=== PATIENT | male | born 1985 | race Caucasian/White ===

== ENCOUNTER 2016-07-18 15:33 | Emergency (ER) | payer BC, MEDICAID ==
[2016-07-18] MEDS ORDERED: HYDROCODONE/APAP 5/325MG TABLET PO ONE (16:10)
--- NOTE | 2016-07-18 16:10 | Emergency Department Record ---
History of Present Illness - General Chief complaint: Eye Problem Stated complaint: "feels like something in left eye Time Seen by Provider: 07/18/16 15:52 Source: Patient Mode of Arrival: Ambulatory Limitations: No limitations - History of Present Illness Initial comments: 30 yo male presents with left eye redness and irritation. He felt like something was in his eye this morning. He rubbed his eye and flushed it but the sensation of a foreign body is still present. He denies any eye history or eye disease. He does not wear contacts or glasses. No crusting or drainage. He has some clear tears. chief complaint: Eye pain, Eye redness, Foreign body -: Hour(s) Onset Description: Sudden Location: Left eye Place: Home If Injury: None Eye Symptoms: Burning, Discharge, Foreign body sensation, Itching, Pain Severity: Moderate Severity scale (1-10): 1 If Pain, Quality: Aching Consistency: Constant Associated Symptoms: None Treatments Prior to Arrival: Irrigated eye - Related Data Visual acuity (L) = 20/: 30 Visual acuity (R) = 20/: 15 With correction: No Patient Tetanus UTD (within 5 yrs): Yes Home Medications Medication Instructions Recorded Confirmed Last Taken Multivitamin [Multi-Vitamin Daily] 1 each PO DAILY 07/18/16 07/18/16 1 Day Ago Allergies Allergy/AdvReac Type Severity Reaction Status Date / Time No Known Drug Allergies Allergy Verified 07/18/16 15:44 Travel Screening - Travel/Exposure Within Last 30 Days Have you traveled within the last 30 days?: No - Travel/Exposure Within Last Year Have you traveled outside the [place] in the last year?: No - Additonal Travel Details Have you been exposed to anyone with a communicable illness?: No - Travel Symptoms Symptom Screening: None Review of Systems Constitutional: Denies: Chills, Fever, Malaise, Weakness Eyes: Reports: Eye pain, Vision change. Denies: Eye discharge ENT: Denies: Congestion, Throat pain Respiratory: Denies: Cough, Dyspnea, Hemoptysis, Stridor, Wheezes Cardiovascular: Denies: Chest pain, Palpitations, Syncope Endocrine: Denies: Fatigue Gastrointestinal: Denies: Abdominal pain, Diarrhea, Nausea, Vomiting Genitourinary: Denies: Frequency, Hematuria Musculoskeletal: Denies: Arthralgia, Back pain, Myalgia Skin: Denies: Bruising, Change in color, Rash Neurological: Denies: Confusion, Headache, Numbness, Vertigo, Weakness Psychiatric: Denies: Anxiety Hematological/Lymphatic: Denies: Blood Clots, Easy bleeding, Easy bruising, Swollen glands Past Medical History - SOCIAL HISTORY Smoking Status: Never smoker Alcohol Use: Rare Drug Use: None - RESPIRATORY Hx Respiratory Disorders: No - CARDIOVASCULAR Hx Cardio Disorders: No - NEURO Hx Neuro Disorders: No - GI Hx GI Disorders: No - Hx Genitourinary Disorders: No - ENDOCRINE Hx Endocrine Disorders: No - MUSCULOSKELETAL Hx Musculoskeletal Disorders: No - PSYCH Hx Psych Problems: No - HEMATOLOGY/ONCOLOGY Hx Hematology/Oncology Disorders: No Family Medical History Any Significant Family History?: Yes Physical Exam - General General Appearance: Alert, Oriented x3, Cooperative, No acute distress Limitations: No limitations - Head Head exam: Normal inspection - Eye Eye exam: PERRL, Conjunctival injection, EOMI, Periorbital swelling (mild lid swelling), Other (The lid was everted, no visible FB, no lesions, the area was gently swept with a Qtip no FB found). negative: Normal appearance, Nystagmus, Periorbital tenderness Pupils: Normal accommodation, Other (Slit lamp, AC is clear, no cell or flare, no hyphema). negative: Irregular, Unequal With correction: No Image of Eyes: 1 - stain uptake, no dendrites or ulcers, clear under slit lamp, consistent with abrasion - ENT ENT exam: Normal exam, Mucous membranes moist Ear exam: Normal external inspection Nasal Exam: Normal inspection Mouth exam: Normal external inspection Teeth exam: Normal inspection Throat exam: Normal inspection - Neck Neck exam: Normal inspection. negative: Lymphadenopathy - Cardiovascular Cardiovascular Exam: Regular rate, Normal rhythm, Normal heart sounds - Rectal Rectal exam: Deferred - exam: Deferred - Neurological Neurological exam: Alert, CN II-XII intact, Oriented X3. negative: Altered, Motor sensory deficit - Psychiatric Psychiatric exam: Normal affect, Normal mood - Skin Skin exam: Dry, Intact, Normal color, Warm Course Vital Signs 07/18/16 15:34 Temperature 98.8 F Pulse Rate 70 Respiratory 16 Rate Blood Pressure 131/70 Pulse Ox 99 - Reevaluation(s) Reevaluation #1: topical alcaine drops were placed. The patient got immediate, 100% relief. The left eye was stained. He has an abrasion to the superior medial area. No FB. No dendrites or ulcerations Slit lamp demonstrated a clear AC Pupil is round, equal and reactive The lid was everted. No FB With pain control the [facility] with the left was 20/20 07/18/16 16:06 Disposition Disposition: Discharge Clinical Impression: Corneal abrasion Qualifiers: Encounter type: initial encounter Laterality: left Qualified Code(s): S05.02XA - Injury of conjunctiva and corneal abrasion without foreign body, left eye, initial encounter Disposition: Home, Self-Care Instructions: Corneal Abrasion (ED) Additional Instructions: Return immediately if worse, vision use the antibiotic every [address] Rubin Marte office in the morning if not significantly improved or return in the morning Referrals: REYNALDO MONTEZ [MEDICAL DOCTOR] - Forms: Patient Portal Access Time of Disposition: 16:11
[2016-07-18] MEDS ORDERED: POLYMYXIN B SULF/TRIMETHOPRIM 10ML BTL OPTH ONE (16:24)
[2016-07-18] MEDS ORDERED: PROPARACAINE HCL OPTH 15ML BTL OPTH ONE (16:32)
== END 2016-07-18 16:34 | disposition home or self-care (01) ==
LOC: ER 15:33
DX: S05.02XA Injury of conjunctiva and corneal abrasion without foreign body, left eye, initial encounter (principal); W22.8XXA Striking against or struck by other objects, initial encounter; Y92.009 Unspecified place in unspecified non-institutional (private) residence as the place of occurrence of the external cause
CPT/HCPCS: 99283